=== PATIENT | male | born 1955 | race Caucasian/White ===

== ENCOUNTER → 2017-05-22 | Outpatient (CLI) | payer OTHER ==
--- NOTE | 2017-05-22 13:39 | FL ---
EXAMINATION TYPE: FL barium swallow w video DATE OF EXAM: 05/22/2017 COMPARISON: NONE HISTORY: Dysphasia CVA TECHNIQUE: Fluoroscopy. FINDINGS: Fluoroscopic guidance was provided for the procedure performed in conjunction with the [facility] pathology department. Please see complete report forthcoming from the Speech Pathology departmen t. Various consistencies from thin liquid to solids were administered. Fluoroscopy time 56 seconds Number of images: 0. No aspiration or penetration was evident. There is pooling within the vallecula. Little contrast passes through the proximal esophageal cricoph aryngeus muscle area. There was delay in bolus formation and transport to the hypopharynx. IMPRESSION: 1. No aspiration or penetration. 2. Significant delay in passage into the esophagus 3. Pooling within the vallecula 4. Poor bolus formation from the oral pharynx to hypopharynx.
== END | disposition home or self-care (01) ==
LOC: RADXRMAIN 10:59
PROVIDERS: ATTEND Psychiatry & Neurology Neurology
DX: K22.8 Other specified diseases of esophagus (principal); I63.9 Cerebral infarction, unspecified
CPT/HCPCS: 74230

== ENCOUNTER → 2017-10-20 | Outpatient (CLI) | payer OTHER ==
--- NOTE | 2017-10-20 12:03 | FL ---
Modified barium swallow. HISTORY: Dysphagia. Modified barium swallow was performed with the department of speech pathology. The patient was prese nted with various consistencies of barium. Dysphagia. Dr. Escobar. Pt given 1oz liquid ez paque, 1 oz nectar, and 1 oz pudding. 1 min 26 sec flu royal time There is no evidence for aspiration . Minimal transient penetration. Delayed oropharyngeal phase but improved from prior examination. Full report is to follow from the department of speech pathology. Impression: No evidence for aspiration. Improvement when compared to prior study.
== END | disposition home or self-care (01) ==
LOC: RADFLMAIN 10:43
PROVIDERS: ATTEND Psychiatry & Neurology Neurology
DX: R13.13 Dysphagia, pharyngeal phase (principal)
CPT/HCPCS: 74230

== ENCOUNTER → 2018-03-19 | Outpatient (CLI) | payer MEDICARE, OTHER ==
--- NOTE | 2018-03-19 13:09 | FL ---
COMPARISON: NONE DATE OF EXAM: 03/19/2018 HISTORY: Dysphasia A number of thin and thick substances were ingested under the care of the department of speech pathol ogy. There is no evidence of aspiration or penetration. There is no evidence of obstruction. Vallec ular pooling noted. IMPRESSION: 1. No evidence of aspiration or penetration.
== END | disposition home or self-care (01) ==
LOC: RADFLMAIN 10:57
DX: R13.12 Dysphagia, oropharyngeal phase (principal)
CPT/HCPCS: 74230

== ENCOUNTER → 2021-04-02 | Outpatient (CLI) | payer MEDICARE, OTHER ==
--- NOTE | 2021-04-02 17:39 | ECHOF ---
Referral Reason:R94.31 Other abnormal EKG MEASUREMENTS -------- HEIGHT: 165.1 cm WEIGHT: 56.7 kg BP: RVIDd: 3.7 cm (< 3.3) IVSd: 1.2 cm (0.6 - 1.1) LVIDd: 3.7 cm (3.9 - 5.3) LVPWd: 1.1 cm (0.6 - 1.1) IVSs: 1.3 cm LVIDs: 2.7 cm LVPWs: 1.6 cm LAESV Index (A-L): 21.42 ml/m Ao Diam: 2.6 cm (2.0 - 3.7) AV Cusp: 2.1 cm (1.5 - 2.6) LA Diam: 3.0 cm (2.7 - 3.8) MV EXCURSION: 13.369 mm (> 18.000) MV EF SLOPE: 57 mm/s (70 - 150) EPSS: 0.8 cm MV E Tato: 0.90 m/s MV DecT: 225 ms MV A Tato: 1.28 m/s MV E/A Ratio: 0.71 AR PHT: 445 ms RAP: 5.00 mmHg RVSP: 25.76 mmHg FINDINGS -------- Sinus rhythm. This was a technically good study. The left ventricular size is normal. There is mild concentric left ventricular hypertrophy. Overa ll left ventricular systolic function is normal with, an EF between 55 - 60 %. The diastolic fillin g pattern is normal for the age of the patient 15.46. The right ventricle is mildly enlarged. Normal LA size by volume 22+/-6 ml/m2. The right atrial size is normal. Interatrial and interventricular septum intact. The aortic valve is trileaflet and appears structurally normal. There is mild aortic regurgitation. There is no evidence of aortic stenosis. There is trace to mild mitral regurgitation. Mild tricuspid regurgitation present. There is no evidence of pulmonary hypertension. The right v entricular systolic pressure, as measured by Doppler, is 25.76mmHg. There is no pulmonic regurgitation present. The aortic root size is normal. IVC Not well visulized. There is no pericardial effusion. CONCLUSIONS -------- 1. The left ventricular size is normal. 2. There is mild concentric left ventricular hypertrophy. 3. Overall left ventricular systolic function is normal with, an EF between 55 - 60 %. 4. The diastolic filling pattern is normal for the age of the patient 15.46 5. The right ventricle is mildly enlarged. 6. There is mild aortic regurgitation. 7. There is trace to mild mitral regurgitation. 8. Mild tricuspid regurgitation present. [employer] MANAGER: Vita Beltran RDCS
== END | disposition home or self-care (01) ==
LOC: RADECHMAIN 13:01
PROVIDERS: ATTEND Family Medicine
DX: I08.1 Rheumatic disorders of both mitral and tricuspid valves (principal)
CPT/HCPCS: 93306